=== PATIENT | female | born 1960 | race Caucasian/White ===

== ENCOUNTER 2016-08-09 12:34 | Emergency (ER) | payer OTHER, BC ==
[~2016-08-09] VITALS: Ht 165.1 cm; Wt 131.5 kg
[2016-08-09 13:00] LABS: BASOPHILS % (AUTO) 0.3 % (0.0-2.0); HEMATOCRIT 40.1 % (36-46); LYMPHOCYTES # (AUTO) 1.6 K/uL (1.0-4.8); LYMPHOCYTES % (AUTO) 28.4 % (22.0-44.0); MEAN CORPUSCULAR HEMOGLOBIN 29.2 pg (26.0-34.0); MEAN CORPUSCULAR HGB CONC 32.5 G/dL (31.0-37.0); MEAN CORPUSCULAR VOLUME 90 fL (80-100); MONOCYTES # (AUTO) 0.4 K/uL (0.1-1.0); MONOCYTES % (AUTO) 7.3 % (2.0-9.0); NEUTROPHILS # (AUTO) 3.6 K/uL (1.8-7.7); PLATELET COUNT (AUTO) 205 K/uL (150-450); RED BLOOD CELL COUNT(AUTO) 4.47 MIL/uL (4.00-5.20); RED CELL DISTRIBUTION WIDTH 12.8 % (11.5-14.5); WHITE BLOOD COUNT (AUTO) 5.7 K/uL (4.5-11.0)
[2016-08-09 13:14] LABS: PROTHROMBIN TIME 10.8 SEC (9.4-11.6)
[2016-08-09 13:18] LABS: ANION GAP 6 mmol/L (8-16); CALCIUM, TOTAL 8.8 mg/dL (8.8-10.5); CARBON DIOXIDE 30 mmol/L (22-29); CHLORIDE 106 mmol/L (98-107); CREATININE 0.69 mg/dL (0.60-1.30); GLOMERULAR FILTR. RATE CALC > 60 mL/min (>60); POTASSIUM 3.7 mmol/L (3.5-5.1); SODIUM SERUM 142 mmol/L (136-145); UREA NITROGEN, BLOOD 12 mg/dL (7-18)
[2016-08-09 13:26] LABS: ALANINE AMINOTRANSFERASE 22 U/L (12-78); ALBUMIN 3.8 g/dL (3.4-5.0); ASPARTATE AMINOTRANSFERASE 15 U/L (15-37); BILIRUBIN,TOTAL 0.6 mg/dL (0.1-1.0); CREATINE KINASE, TOTAL 53 U/L (26-192)
[2016-08-09 13:33] LABS: B-TYPE NATRIURETIC PEPTIDE 43 pg/mL (0-100)
[2016-08-09] MEDS ORDERED: DIAZEPAM 5 MG TABLET ONE (17:11)
[2016-08-09] MEDS ORDERED: MECLIZINE HCL 25 MG TABLET ONE (17:11)
[2016-08-09 19:01] VITALS: BP 127/75
== END 2016-08-09 19:17 | disposition home or self-care (01) ==
LOC: EMS 12:36
DX: R42 Dizziness and giddiness (principal)
CPT/HCPCS: 93005; 99285